=== PATIENT | male | born 1975 | race Caucasian/White ===

== ENCOUNTER 2017-12-03 15:00 | Outpatient (RCR) | payer OTHER ==
--- NOTE | 2017-11-10 17:36 | PT INITIAL EVALUATION ---
MEDICAL DIAGNOSIS: low back pain TREATMENT DIAGNOSIS: same DATE OF ONSET: 11/09/15 SUBJECTIVE: Merrill Benavides presents to physical therapy with complaints of low back pain that started approximately two years ago. He states that he was catching a liset shirt at a basketball game and fell back into his seat jarring his low back. Since that point, he states that the pain would come on and then resolve pretty quick. However, more recently, he reports the pain has been constant and more intense (sharp). He rates the sharp pain to be about a 2/10. He denies any numbness and tingling down into his B LE's. He also reports that the pain is better in the morning and gets worse as the day progresses. He states that the pain is better with better posture, standing, and walking and worse with bending and lying. He states that he feels like the injury is not getting worse and not getting better. Furthermore, he reports that it is really painful to get off of his stomach following game night with his family and feels extremely tight, stiff, and painful. He denies any abnormal gait or bladder. He denies any accidents, trauma, or surgery. He denies any night pain or unexplained weight loss. 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 ROM: Trunk: flexion: Minimal movement loss with empty end feel, extension: minimal movement loss with empty end feel, R side gliding: minimal movement loss with empty end feel, L side gliding: moderate movement loss with tight end feel. Palpation: TTP: Central spinous process T8-9, L4-5 radiating to R and L hips Special Tests: Repeated prone extension: produced symptoms during testing and better symptoms following testing. Repeated prone extension with manual pressure: produced symptoms during testing and better symptoms following testing. Mobility: Independent Gait: He demonstrated normal gait mechanics ASSESSMENT: Merrill will benefit from skilled physical therapy to address the listed impairments to improve function and QOL. Based on signs and symptoms during the examination, they are consistent with a posterior derangement that responded well to extension based principles. Short Term Goals 2 weeks: Pt will demonstrate centralized low back pain to improve function and QOL. 6 weeks: Pt will demonstrate abolished low back pain and return to prior level of function to improve QOL. 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 Thank you, Ronald Gordillo, PT, DPT MTDD
[~2017-12-03 15:00] MED LIST: ASPI-1471 PO; BACL-1 PO; BENA10TA4 PO; BIFI4CAP2 PO; FES4PT PO; FLUO-202 PO; GOLYTE PO; HYOS-50 SL; IBUP-56 PO; KET10 PO; LACT1CAP6 PO; LACT1PAC23 PO; LISI-362 PO; [UNRECOGNIZED DRUG - OTHER] PO
--- NOTE | 2018-01-28 16:45 | PT PLAN OF CARE ---
Physician: Otoniel Hilario MD Patient is being seen: 2 visits Therapist: Ronald Gordillo PT, DPT Medical Diagnosis: low back pain Treatment Diagnosis: same Date of Onset: 11/09/15 Date of Initial Evaluation: 11/09/17 Date patient was last seen: 12/03/17 Number of treatments: 2 Number of cancellations/No shows: 0 INTERVENTIONS: Manual Therapy/STM/MET Strengthening/condition Range of Motion Spinal Stabilization Work Hardening/Cond Stretching Neuromuscular Re-ed Closed Chain Program Posture/Body mechanics Home Exercise Program Therapeutic Activities GOALS: 2 weeks: Pt will demonstrate centralized low back pain to improve function and QOL. MET 6 weeks: Pt will demonstrate abolished low back pain and return to prior level of function to improve QOL. 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 He demonstrated directional preference that abolished his low back pain and improved his trunk AROM in all directions. Furthermore, he was educated on how to prevent his low back pain and if it returns he has the correct tools necessary to reduce/abolish his low back pain with reoccurrences. Posture: He demonstrated minimal rounded shoulders, minimal forward head, and minimal slumped posture. ROM: Trunk: flexion: NIL with normal end feel, extension: NIL with normal end feel, R sidegliding: NIL with normal end feel, L side gliding: NIL with normal end feel. Strength: Palpation: No longer TTP Mobility: Independent If you have any questions, please contact me at [phone]. Thank you, Ronald Gordillo PT, DPT [facility]
== END 2017-12-03 18:00 | disposition home or self-care (01) ==
LOC: PT 15:00
PROVIDERS: ATTEND Internal Medicine
DX: M54.5 Low back pain (principal)
CPT/HCPCS: 97161

== ENCOUNTER → 2018-04-27 | Outpatient (REF) ==
[2018-04-27 07:31] LABS: LDL CHOLESTEROL 64 mg/dl
== END ==
DX: Z02.9 Encounter for administrative examinations, unspecified (principal)

== ENCOUNTER → 2019-04-25 | Outpatient (REF) ==
[~2019-04-25] MED LIST changes: -BENA10TA4 PO; +BENA10TA55 PO; +BENZ200C15 PO; +GUAI120L3 PO
[2019-04-25 07:41] LABS: LDL CHOLESTEROL 69 mg/dl
== END ==
DX: Z02.9 Encounter for administrative examinations, unspecified (principal)